=== PATIENT | male | born 2000 | race Caucasian/White ===

== ENCOUNTER 2024-09-22 20:33 | Emergency (ER) | payer MEDICAID ==
[~2024-09-22] VITALS: Ht 157.5 cm; Wt 57.1 kg
[2024-09-22 20:43] VITALS: BP 109/70; PULSE 82; RESP 16; TEMP 99.2; O2SAT 97
[2024-09-22] MEDS ORDERED: HYDR28OI2 TOP (21:33)
[2024-09-22] MEDS: hydrocortisone 1% cream 28gm TP ONE (21:34)
== END 2024-09-22 21:39 | disposition home or self-care (01) ==
LOC: ER 20:35
DX: L23.9 Allergic contact dermatitis, unspecified cause (principal)
CPT/HCPCS: 99282

== ENCOUNTER 2024-10-25 22:50 | Emergency (ER) | payer MEDICAID ==
[~2024-10-25] VITALS: Ht 160 cm; Wt 57.4 kg
[~2024-10-25 22:50] MED LIST: HYDR28OI2 TOP
[2024-10-26] MEDS: ibuprofen tablet 400 MG TABLET PO STA (00:54)
[2024-10-26] MEDS: acetaminophen 325mg tablet PO ONE (02:48)
[2024-10-26 02:57] VITALS: BP 119/68; PULSE 64; RESP 18; TEMP 98.1; O2SAT 99
== END 2024-10-26 02:58 | disposition home or self-care (01) ==
LOC: ER 22:51
DX: M79.632 Pain in left forearm (principal)
CPT/HCPCS: 99283